=== PATIENT | male | born 1935 | race Caucasian/White ===

== ENCOUNTER 2022-02-27 15:50 | Observation (INO) ==
[2022-02-27] MEDS ORDERED: LIDOCAINE/EPINEPHR/TETRACAINE 3 ML SYRINGE TOP ONE (16:30)
[2022-02-27 17:17] LABS: Basophils % 0.3 % (0.0-0.8); Eosinophils # 0.1 10*3/uL (0.0-0.87); Eosinophils % 1.6 % (0.00-10.9); Hematocrit 35.1 VOL% (42.0-52.0); Hemoglobin 11.4 GM/DL (14.0-18.0); Immature Granulocytes % 0.9 %; Immature Granulocytes Absolute 0.06 #; Lymphocytes # 0.9 10*3/uL (1.4-4.0); Lymphocytes % 12.2 % (21.2-54.2); Mean Corpuscular HGB Conc 32.5 GM/DL (32-36); Mean Corpuscular Volume 96.2 FL (87-102); Mean Platelet Volume 10.2 FL (9.6-12.0); Monocytes # 0.5 10*3/uL (0.11-0.8); Monocytes % 7.3 % (1.7-12.7); Neutrophils % 77.7 % (38.7-73.9); Platelet Count 228 T/CUMM (130-400); Red Blood Count 3.65 MC/CUMM (3.8-5.5); Red Cell Distribution Width 13.1 % (9.3-17.3)
[2022-02-27] MEDS ORDERED: LIDOCAINE 2% TOP JELLY 20 ML VIAL INTRAURETH ONE (17:20)
[2022-02-27 17:38] LABS: Alanine Aminotransferase 23 U/L (16-61); Albumin 2.4 G/DL (3.4-5.0); Alkaline Phosphatase 87 U/L (45-117); Aspartate Amino Transferase 14 U/L (0-37); Bilirubin,Total < 0.39 MG/DL (0.20-1.00); Blood Urea Nitrogen 17 MG/DL (7-18); Calcium 8.6 MG/DL (8.5-10.1); Carbon Dioxide 26 MMOL/L (21-32); Chloride 110 MMOL/L (98-107); Glucose 148 MG/DL (74-106); Osmolality,Calculated 290.8 MOS/KG (273-304); Potassium 3.6 MMOL/L (3.5-5.1); Sodium 144 MMOL/L (136-145); Total Protein 5.9 G/DL (6.4-8.2)
[2022-02-27] MEDS ORDERED: cefTRIAXone 1,000 MG in SODIUM CHLORIDE 0.9% 100 ML IV ONE (17:47)
[2022-02-27] MEDS ORDERED: ONDANSETRON 4 MG/2 ML VIAL IV PRN (19:11)
[2022-02-27] MEDS ORDERED: guaiFENesin/DM ER 600-30 MG TABLET PO PRN (19:11)
[2022-02-27] MEDS ORDERED: GLUCAGON 1 MG VIAL IM PRN (19:11)
[2022-02-27] MEDS ORDERED: ZALEPLON 5 MG CAPSULE PO PRN (19:11)
[2022-02-27] MEDS ORDERED: MORPHINE 2 MG/1 ML SYRINGE IV PRN (19:11)
[2022-02-27] MEDS ORDERED: hydrALAZINE 20 MG/1 ML VIAL IV PRN (19:11)
[2022-02-27] MEDS ORDERED: diphenhydrAMINE CAP 25 MG CAPSULE PO PRN (19:11)
[2022-02-27] MEDS ORDERED: ALBUTEROL/IPRATROPIUM 3 ML NEB RESP TX PRN (19:11)
[2022-02-27] MEDS ORDERED: NICOTINE 21 MG/24 HR PATCH TRANSDERM PRN (19:11)
[2022-02-27] MEDS ORDERED: DEXTROSE 10% 250 ML BAG IV PRN (19:11)
[2022-02-27 19:51] LABS: Mucus,Urine Moderate /LPF (Occasional); RBC,Urine 2203 /HPF (0-4)
[2022-02-27 19:52] LABS: Bilirubin,Urine Large mg/dL (Negative); Blood, Urine Large mg/dL (Negative); Glucose,Urine (UA) Negative (Negative); Ketones,Urine 15 mg/dL (Negative); Nitrite,Urine Positive (Negative); Protein,Urine >=300 mg/dL (Negative); Urine Appearance Cloudy (Clear); Urine Color Red (Yellow)
[2022-02-27] MEDS: ACETAMINOPHEN 325 MG TABLET PO PRN (20:06)
[2022-02-28 06:29] LABS: Basophils % 0.4 % (0.0-0.8); Eosinophils # 0.2 10*3/uL (0.0-0.87); Hemoglobin 10.8 GM/DL (14.0-18.0); Immature Granulocytes % 0.4 %; Immature Granulocytes Absolute 0.02 #; Lymphocytes # 0.9 10*3/uL (1.4-4.0); Lymphocytes % 16.3 % (21.2-54.2); Mean Corpuscular HGB Conc 32.7 GM/DL (32-36); Mean Corpuscular Volume 95.7 FL (87-102); Mean Platelet Volume 10.4 FL (9.6-12.0); Monocytes # 0.4 10*3/uL (0.11-0.8); Monocytes % 7.8 % (1.7-12.7); Neutrophils % 72.1 % (38.7-73.9); Platelet Count 216 T/CUMM (130-400); Red Blood Count 3.45 MC/CUMM (3.8-5.5); Red Cell Distribution Width 13.2 % (9.3-17.3); White Blood Count 5.4 T/CUMM (4-12)
[2022-02-28 07:36] LABS: Calcium 8.4 MG/DL (8.5-10.1); Potassium 3.7 MMOL/L (3.5-5.1)
[2022-02-28] MEDS ORDERED: ONDANSETRON 4 MG/2 ML VIAL IV PRN (07:52)
[2022-02-28] MEDS ORDERED: HYDROmorphone 1 MG/1 ML SYRINGE IV PRN (07:52)
[2022-02-28] MEDS ORDERED: diphenhydrAMINE 50 MG/1 ML VIAL IV PRN (07:52)
[2022-02-28] MEDS ORDERED: PROMETHAZINE INJ 25 MG in SODIUM CHLORIDE 0.9% 50 ML IV PRN (07:52)
[2022-02-28] MEDS ORDERED: MEPERIDINE 25 MG/1 ML VIAL IV PRN (07:52)
[2022-02-28] MEDS ORDERED: MEPERIDINE 50 MG/1 ML VIAL IV PRN (08:00)
[2022-02-28] MEDS: PANTOPRAZOLE 40 MG TABLET PO SCH (08:08)
[2022-02-28] MEDS ORDERED: LIDOCAINE 2% TOP JELLY 20 ML VIAL INTRAURETH ONE (09:14)
[2022-02-28] MEDS ORDERED: NEOMYCIN/POLYMYXIN IRRIG SOLN 1 ML AMP BLADDERIRR ONE (09:35)
[2022-02-28] MEDS: cefTRIAXone 1,000 MG in SODIUM CHLORIDE 0.9% 100 ML IV SCH (09:45)
[2022-02-28] MEDS ORDERED: cefTRIAXone 1,000 MG VIAL ONE (09:48)
[2022-02-28] MEDS ORDERED: propofoL 200 MG/20 ML VIAL IV ONE (09:54)
[2022-02-28] MEDS ORDERED: LIDOCAINE 2% 5 ML VIAL ONE (09:54)
[2022-02-28] MEDS ORDERED: ETOMIDATE 40 MG/20 ML VIAL IV ONE (09:54)
[2022-02-28] MEDS: ACETAMINOPHEN 325 MG TABLET PO PRN (12:13)
[2022-03-01 05:40] LABS: Basophils % 0.5 % (0.0-0.8); Eosinophils # 0.2 10*3/uL (0.0-0.87); Eosinophils % 3.3 % (0.00-10.9); Hematocrit 32.6 VOL% (42.0-52.0); Hemoglobin 10.4 GM/DL (14.0-18.0); Immature Granulocytes % 0.5 %; Immature Granulocytes Absolute 0.03 #; Lymphocytes # 0.9 10*3/uL (1.4-4.0); Lymphocytes % 14.3 % (21.2-54.2); Mean Corpuscular HGB Conc 31.9 GM/DL (32-36); Mean Platelet Volume 10.4 FL (9.6-12.0); Monocytes # 0.5 10*3/uL (0.11-0.8); Monocytes % 7.6 % (1.7-12.7); Neutrophils % 73.8 % (38.7-73.9); Platelet Count 217 T/CUMM (130-400); Red Blood Count 3.36 MC/CUMM (3.8-5.5); Red Cell Distribution Width 13.2 % (9.3-17.3)
[2022-03-01 06:11] LABS: Calcium 8.7 MG/DL (8.5-10.1); Osmolality,Calculated 288.8 MOS/KG (273-304); Potassium 4.3 MMOL/L (3.5-5.1)
[2022-03-01] MEDS: cefTRIAXone 1,000 MG in SODIUM CHLORIDE 0.9% 100 ML IV SCH (10:22)
[2022-03-01] MEDS: PANTOPRAZOLE 40 MG TABLET PO SCH (10:22)
[2022-03-01] MEDS: ATORVASTATIN 40 MG TABLET PO SCH (10:22)
[2022-03-01] MEDS: amLODIPine 10 MG TABLET PO SCH (10:22)
[2022-03-02 07:53] VITALS: BP 126/65
[2022-03-02] MEDS: amLODIPine 10 MG TABLET PO SCH (09:02)
[2022-03-02] MEDS: ATORVASTATIN 40 MG TABLET PO SCH (09:02)
[2022-03-02] MEDS: cefTRIAXone 1,000 MG in SODIUM CHLORIDE 0.9% 100 ML IV SCH (09:02)
[2022-03-02] MEDS: PANTOPRAZOLE 40 MG TABLET PO SCH (09:02)
== END 2022-03-02 10:55 | disposition swing bed (61) ==
LOC: N.ED 15:50 → N.EDINP 20:04 → INTOOBSV 20:04 → SUATTDRO 20:04 → N.5E 20:08
PROVIDERS: ADMIT Hospitalist; ATTEND Internal Medicine